=== PATIENT | female | born 1960 | race Caucasian/White ===

== ENCOUNTER → 2016-06-09 | Outpatient (CLI) | payer BC ==
[~2016-06-09] MED LIST: ALBU8.5H3 INH; CEPH-368 PO; GUAI473L20 PO; LEVO75TA5 PO; LISI2.5T PO; OXYC-302 PO
== END | disposition home or self-care (01) ==
LOC: ROC 09:47
PROVIDERS: ATTEND Radiology Radiation Oncology
DX: C50.419 Malignant neoplasm of upper-outer quadrant of unspecified female breast (principal)
CPT/HCPCS: 99212; G0463

== ENCOUNTER → 2017-08-03 | Outpatient (CLI) | payer OTHER ==
[~2017-08-03] MED LIST changes: -ALBU8.5H3 INH; +ALBU8.5H8 INH
== END | disposition home or self-care (01) ==
LOC: ROC 09:40
PROVIDERS: ATTEND Radiology Radiation Oncology
DX: C50.411 Malignant neoplasm of upper-outer quadrant of right female breast (principal)
CPT/HCPCS: 99212; G0463

== ENCOUNTER → 2018-08-05 | Outpatient (CLI) | payer BC | END | disposition home or self-care (01) | LOC: ROC 07:39 | PROVIDERS: ATTEND Radiology Radiation Oncology | DX: Z08 Encounter for follow-up examination after completed treatment for malignant neoplasm (principal); Z85.3 Personal history of malignant neoplasm of breast; Z90.13 Acquired absence of bilateral breasts and nipples; Z79.899 Other long term (current) drug therapy | CPT/HCPCS: 99213; G0463 ==